=== PATIENT | male | born 1970 | race Caucasian/White ===

== ENCOUNTER 2017-11-15 07:51 | Emergency (ER) | payer OTHER ==
[2017-11-15 08:17] VITALS: RESP 16; O2SAT 98
--- NOTE | 2017-11-15 08:18 | CPEKG ---
Heart Rate: 69 RR Interval: 870 P-R Interval: 152 QRSD Interval: 84 QT Interval: 388 QTC Interval: 416 P [place]: 43 QRS [place]: 41 T Wave [place]: 41 EKG Severity - ABNORMAL ECG - EKG Impression: SINUS RHYTHM EKG Impression: CONSIDER LEFT VENTRICULAR HYPERTROPHY EKG Impression: ST ELEV, PROBABLE NORMAL EARLY REPOL PATTERN Electronically Signed By: David Fermin 16-Nov-2017 07:19:31
[2017-11-15 08:58] LABS: PLATELET COUNT 233 10^3/uL (150-400)
[2017-11-15] MEDS ORDERED: NS 1,000 ML IV ONE (09:09)
--- NOTE | 2017-11-15 09:09 | EDPHY ---
General Time Seen by Provider: 11/15/17 09:01 Narrative: CHIEF COMPLAINT: Chest pain, patient concern for PE HISTORY OF PRESENT ILLNESS: Patient complains of chest pressure and pain. He noticed it this morning at 6: 00 a.m.. This is described as a dull pain across the chest. It has been mostly constant but does wax and wane. It is mild to moderate. Nonexertional. Described as pleuritic. Does not radiate. No shortness of breath. No nausea , vomiting or diaphoresis. No back pain. No abdominal pain. He is 1 week postoperative from a right patellar tendon repair and has concern for the possibility of PE. He has been taking Lovenox 40 mg subcu daily. No other associated complaints or modifying factors. REVIEW OF SYSTEMS: Ten systems reviewed and are negative unless otherwise noted in the HPI PCP: Dr. Salas SPECIALISTS: [facility] PAST MEDICAL HISTORY: Uncomplicated. Right patellar tendon rupture PAST SURGICAL HISTORY: Right patellar tendon repair November 09, 2017 SOCIAL HISTORY: Nonsmoker. No drug or alcohol use. Works as a hospitalist physician. Lives here in [place] FAMILY HISTORY: Noncontributory EXAMINATION General Appearance: Alert, no distress Head: normocephalic, atraumatic Eyes: Pupils equal and round, no conjunctival pallor or injection ENT, Mouth: Mucous membranes moist Neck: Normal inspection, supple, non-tender Respiratory: Lungs are clear to auscultation. No wheezing, rhonchi or crackles Cardiovascular: Regular rate and rhythm. No murmur. Symmetric DP and PT pulses 2+. Neurological: A&O, nonfocal, normal sensation lower extremities. Skin: Warm and dry, no rash. Right knee incision is clean, dry and intact with clean dressing. No erythema of the surrounding skin. Extremities: Appropriate tenderness of the right knee. Right knee is in a brace in this range of motion not tested. Psychiatric: Mood and affect normal DIFFERENTIAL DIAGNOSES: Including but not limited to ACS, DVT, PE, pleurisy, pneumonia, atelectasis MDM: 9:05 a.m. Pleuritic chest pain of 3 hr duration. Patient is a practicing physician and request CT angiography of the chest to rule out PE. He has been on once daily prophylactic dose of Lovenox and is 1 week postop from a right patellar tendon rupture repair. Vital signs are within normal limits with no tachycardia or hypoxemia. EKG is unremarkable for ischemia. Laboratory studies were ordered prior to my examination. He would like to forego chest x-ray and D-dimer and proceed directly CT angiography. Low clinical suspicion for PE but he does have risk factors. 9:50 a.m. Notified by radiologist Dr. Brand. Negative for PE. There is an incidental note of a right 3 mm pulmonary nodule. We discussed this. Small bilateral pleural effusions. 10:00 a.m. I discussed the CT scan incidental finding and negative PE study. We discussed possibility of pleurisy and other etiologies. I do not have suspicion for ACS, nor does the patient. He would like to be discharged home. I do feel this is reasonable. He feels this may be an early bronchitis. He will follow up with primary care physician. He will discuss with primary care physician and orthopedist the possibility of continuation of Lovenox if needed. We discussed ED precautions and he is comfortable this plan and discharged home stable condition. SUPERVISION: Patient was independently examined, but I discussed the case with my secondary supervising physician Dr. brown - Diagnostics Imaging Results: Imaging Impressions Chest/Thorax CTA 11/15/17 09:08 Impression: 1. No visible pulmonary embolus. 2. Tiny bilateral pleural effusions. 3. 3 mm right upper lobe nodule. If the patient is a smoker or is high risk, unenhanced low dose chest CT for follow up in 12 months is considered optional. Otherwise, no further follow up is needed per Fleischner Society criteria. 4. Additional findings as above. Findings discussed with Hussain De La O on 11/15/2017 at 9:51 a.m. - History Smoking Status: Never smoked - Objective Vital Signs: Initial Vital Signs Temperature (C) 97.2 F 11/15/17 08:14 Heart Rate 84 11/15/17 08:14 Respiratory Rate 16 11/15/17 08:14 Blood Pressure 128/74 H 11/15/17 08:14 O2 Sat (%) 98 11/15/17 08:14 O2 Delivery Mode Room Air Allergies/Adverse Reactions: No Known Allergies Allergy (Unverified 11/15/17 08:06) Home Medications: Medication Instructions Recorded Lovenox 11/15/17 Oxycodone-Acetaminophen 5-325 11/15/17 Laboratory Results: Laboratory Results 11/15/17 08:22 03/02/18 08:22 0318 18 18 08:22 08:22 08:22 WBC 6.44 10^3/uL 10^3/uL (3.80-9.50) RBC 5.34 10^6/uL 10^6/uL (4.40-6.38) Hgb 16.1 g/dL g/dL (13.7-17.5) Hct 45.1 % % (40.0-51.0) MCV 84.5 fL fL (81.5-99.8) MCH 30.1 pg pg (27.9-34.1) MCHC 35.7 g/dL g/dL (32.4-36.7) RDW 11.6 % % (11.5-15.2) Plt Count 233 10^3/uL 10^3/uL (150-400) MPV 9.3 fL fL (8.7-11.7) Neut % (Auto) 65.4 % % (39.3-74.2) Lymph % (Auto) 21.3 % % (15.0-45.0) [place] % (Auto) 9.0 % % (4.5-13.0) Eos % (Auto) 3.4 % % (0.6-7.6) Baso % (Auto) 0.3 % % (0.3-1.7) Nucleat RBC Rel Count 0.0 % % (0.0-0.2) Absolute Neuts (auto) 4.21 10^3/uL 10^3/uL (1.70-6.50) Absolute Lymphs (auto) 1.37 10^3/uL 10^3/uL (1.00-3.00) Absolute Monos (auto) 0.58 10^3/uL 10^3/uL (0.30-0.80) Absolute Eos (auto) 0.22 10^3/uL 10^3/uL (0.03-0.40) Absolute Basos (auto) 0.02 10^3/uL 10^3/uL (0.02-0.10) Absolute Nucleated RBC 0.00 10^3/uL 10^3/uL (0-0.01) Immature Gran % 0.6 % % (0.0-1.1) Immature Gran # 0.04 10^3/uL 10^3/uL (0.00-0.10) Sodium 143 mEq/L mEq/L (135-145) Potassium 4.5 mEq/L mEq/L (3.5-5.2) Chloride 104 mEq/L mEq/L (97-110) Carbon Dioxide 28 mEq/l mEq/l (22-31) Anion Gap 11 mEq/L mEq/L (8-16) BUN 18 mg/dL mg/dL (7-23) Creatinine 0.9 mg/dL mg/dL (0.7-1.3) Estimated GFR > 60 Glucose 87 mg/dL mg/dL (70-100) Calcium 9.4 mg/dL mg/dL (8.5-10.4) Total Bilirubin 1.2 mg/dL mg/dL (0.1-1.4) AST 26 IU/L IU/L (17-59) ALT 33 IU/L IU/L (21-72) Alkaline Phosphatase 60 IU/L IU/L (38-126) Troponin I < 0.012 ng/mL ng/mL (0.000-0.034) Total Protein 6.8 g/dL g/dL (6.3-8.2) Albumin 3.9 g/dL g/dL (3.5-5.0) Medications Given: Discontinued Medications Sodium Chloride (Ns) 1,000 mls @ 0 mls/hr IV EDNOW ONE; Wide Open PRN Reason: Protocol Stop: 11/15/17 09:10 Last Admin: 11/15/17 09:36 Dose: 1,000 mls Departure - Departure Disposition: Home, Routine, Self-Care Clinical Impression: Acute chest pain, Incidental lung nodule, less than or equal to 3mm Condition: Good Instructions: Chest Pain (ED), Pleural Effusion (ED) Additional Instructions: 1. Contact primary care physician for follow-up 2. Contact Orthopedics to discuss further Lovenox as needed Referrals: SARAH SALAS [Primary Care Provider] - As per Instructions
[2017-11-15] MEDS ORDERED: IOPAMIDOL (ISOVUE-300) 100 ML BTL ONE (09:11)
[2017-11-15] MEDS ORDERED: IOPAMIDOL (ISOVUE 370) 100 ML BTL IV ONE (09:12)
[2017-11-15 11:26] VITALS: BP 130/72; PULSE 67; TEMP 98.6
== END 2017-11-15 10:15 | disposition home or self-care (01) ==
DX: R91.1 Solitary pulmonary nodule (principal); E86.9 Volume depletion, unspecified
CPT/HCPCS: Q9967